=== PATIENT | male | born 1975 | race Caucasian/White ===

== ENCOUNTER 2020-10-02 13:06 | Emergency (ER) | payer OTHER ==
[~2020-10-02 13:06] MED LIST: ELIMITE60 GM TOP; NAPROXEN500 MG PO; PREDNISONE 20MG20 MG PO; ROBAXIN500 MG PO
[2020-10-02 14:53] LABS: BUN/CREAT RATIO (CALC) 11.5 RATIO; CREATININE 0.87 mg/dL (0.67-1.17); POTASSIUM 4.4 mmol/L (3.5-5.1)
[2020-10-02 15:08] LABS: BASOPHIL 0.6 % (0-2); EOSINOPHIL 2.7 % (0-5); HCT 44.2 % (42.0-52.0); HGB 14.9 g/dl (13.2-18.0); LYMPHOCYTE 28.1 % (15-48); MCHC 33.7 g/dL (32.0-36.0); MCV 92.1 fL (78.0-100.0); MONOCYTE 9.1 % (0-12); MPV 11.2 fL (6.0-9.5); NEUTROPHIL 59.4 % (41-80); NRBC 0; PLT 319 K/uL (150-400); RDW 12.7 % (11.5-14.0); WBC 8.4 K/uL (4.0-10.5)
[2020-10-02] MEDS ORDERED: CYCLOBENZAPRINE10 MG PO (16:01)
[2020-10-02] MEDS ORDERED: PREDNISONE 20MG20 MG PO (16:01)
[2020-10-02] MEDS ORDERED: NORCO 5-325 TA1 EACH PO (16:01)
== END 2020-10-02 16:16 | disposition home or self-care (01) ==
LOC: FER 13:06
PROVIDERS: Nurse Practitioner Family
DX: S39.012A Strain of muscle, fascia and tendon of lower back, initial encounter (principal); Z98.890 Other specified postprocedural states; Z87.39 Personal history of other diseases of the musculoskeletal system and connective tissue; X50.9XXA Other and unspecified overexertion or strenuous movements or postures, initial encounter
CPT/HCPCS: 36415; 72131; 80048; 85025; J1885